=== PATIENT | female | born 1960 | race Caucasian/White ===

== ENCOUNTER → 2017-03-22 | Outpatient (CLI) | payer BC ==
[~2017-03-22] MED LIST: AMLO-110 PO; CHOL1000 PO; MULT-1027 PO; OMEP40CA41 PO
--- NOTE | 2017-03-22 13:03 | DIAGNOSTIC IMAGING REPORT ---
LUMBAR SPINE W/O CONTRAST HISTORY: Pain. Radiculopathy. LUMBAR RADICULOPATHY TECHNIQUE: Multiplanar multisequence MRI of the lumbar spine was performed without the use of contrast. COMPARISON: None. FINDINGS: For the purpose of the report the L5-S1 disc space will be located on axial image 27 of 30. Moderate degenerative disc changes throughout. L1-L2: No significant central canal or neural foraminal narrowing. L2-L3: Mild broad-based bulge. Minimal impact anterior thecal sac. L3-L4: Moderate broad-based bulging disc. Mild multifactorial narrowing of the spinal canal. Moderate hypertrophic change posterior facets L4-L5: Moderate multifactorial spinal stenosis. Broad-based bulging disc. Hypertrophic change posterior elements. L5-S1: Broad-based right central bulging disc. Mild multifactorial narrowing of the spinal canal. Considerable degenerative change posterior facets. IMPRESSION: 1. Moderate multifactorial multilevel narrowing of the spinal canal. This is considered most significant at L4-L5 and to a lesser extent L3-L4. 2. Mild broad-based right central disc herniation L5-S1 3. Moderate degenerative disc change throughout. The above report was generated using voice recognition software. It may contain grammatical, syntax or spelling errors. Electronically signed by: Andrez Garrett M.D. 03/22/2017 1:02 PM Dictated Date/Time: 03/22/2017 12:56 PM
== END | disposition home or self-care (01) ==
LOC: C.MRIBC 12:16
PROVIDERS: ATTEND Physician Assistant Medical
DX: M51.17 Intervertebral disc disorders with radiculopathy, lumbosacral region (principal)

== ENCOUNTER 2018-07-09 07:59 | Inpatient (IN) ==
--- NOTE | 2018-06-18 15:12 | PAT Medication Instructions ---
Medication Instructions Date of Service June 18, 2018 Home Medications CBD oil 1 dose TOPICAL BID amlodipine 5 mg tablet 5 mg PO HS cholecalciferol (vitamin D3) 1,000 5,000 units PO QAM multivitamin tablet 1 tab PO QAM omeprazole magnesium 20 mg 40 mg PO Q2D STOP taking 24 hours before surgery CBD oil 1 dose TOPICAL BID DO NOT take the morning of surgery cholecalciferol (vitamin D3) 1,000 5,000 units PO QAM multivitamin tablet 1 tab PO QAM Take morning of surgery With a small sip of water, OTHERWISE NOTHING TO EAT OR DRINK AFTER MIDNIGHT: omeprazole magnesium 20 mg 40 mg PO Q2D Take evening before surgery amlodipine 5 mg tablet 5 mg PO HS Other Notes If you have any questions please call us at [phone] or [phone] or [phone] or [phone]
--- NOTE | 2018-06-19 09:38 | XRay Report ---
XR chest Pre-admission PA/Lat CLINICAL HISTORY: pat COMPARISON STUDY: No previous studies for comparison. FINDINGS: The bones soft tissues and hemidiaphragms are normal. The cardiomediastinal silhouette is n ormal. The lungs are clear. The pulmonary vasculature is normal. IMPRESSION: Negative chest. The above report was generated using voice recognition software. It may contain grammatical, syntax or spelling errors. Electronically signed by: Andrez Garrett M.D. 06/19/2018 9:37 AM
--- NOTE | 2018-06-19 10:42 | Anesthesiology Consultation ---
Date of Service June 19, 2018 Assessment & Plan (1) Encounter for pre-operative examination: Chart Review Chart Review: Acceptable Risk for Surgery and Patient seen in Pre Admission Testing Teaching & Discussion Instructed NPO after midnight before surgery, except medications with 15 cc of water. Medication instructions provided according to the PAT guidelines. History Surgery Operation Date: 07/09/18 08:50 Proposed Procedures p Right Total Knee Replacement - Emmanuel Cain MD Height/Weight Height: 5 ft 3 in Weight: 96.4 kg Allergies Allergy/AdvReac Type Severity Reaction Status Date / Time No Known Allergies Allergy Verified 06/11/18 10:58 Medications Home Medications Medication Instructions Recorded Confirmed Last Taken CBD oil 1 dose TOPICAL BID 01/11/18 06/11/18 Unknown amlodipine 5 mg tablet 5 mg PO HS 01/11/18 06/11/18 Unknown cholecalciferol (vitamin D3) 1,000 5,000 units PO QAM 01/11/18 06/11/18 Unknown unit capsule multivitamin tablet 1 tab PO QAM 01/11/18 06/11/18 Unknown omeprazole magnesium 20 mg 40 mg PO Q2D 01/11/18 06/11/18 Unknown tablet,delayed release Past Medical History Medical History Obesity (Chronic) Hyperlipidemia (Chronic) Depression (Chronic) GERD (gastroesophageal reflux disease) (Chronic) Goiter (Chronic) Hypertension (Chronic) Irritable bowel syndrome (Chronic) Osteoarthritis of knees, bilateral (Chronic) Lumbar stenosis with neurogenic claudication (Chronic) LOWER THORACIC/LUMBAR REGION Lumbar back pain (Chronic) Past Surgical History Surgical History History of shoulder surgery (Resolved) LEFT SHOULDER History of D&C (Resolved) History of section (Resolved) X2 History of arthroscopy B/L KNEE MENISCUS PROCEDURE Past Anesthesia History No Hx of Anesthesia Complications and No Family Hx of Anesthesia Complications History of PONV No Motion Sickness Screening History of Motion Sickness: No Social History Smoking Status: Never smoker Do You Dip or Chew Tobacco: No Hx Alcohol Use: No Alcohol Intake Frequency Comment: 0 Hx Substance Use: No substance use type: does not use Exercise / Class Metabolic Activity II 4-5 Yardwork/Stairs/Walk up hill (Denies CP and SOB with stairs) Review of Systems Pt denies any recent chest pain, shortness of breath, palpitations, cough, fever or URI. Physical Exam Vital Signs BP: 127/77 P: 86bpm SPO2: 94% RA T: 98.6 R: 16 ENMT Mouth: + dental restorations (few crowns); no chipped teeth and no loose teeth Thyromental Distance: < 3.5 Finger Breadths (3) Mallampati Class: I Neck + thick neck; neck extension not limited Respiratory normal respiratory effort Auscultation: lungs clear to auscultation bilaterally Cardiovascular Rate/Rhythm: regular rate and regular rhythm Heart Sounds: no murmur Vessels: no carotid bruit Testing Electrocardiogram Date: 06/19/18 Findings: + NSR @ (82) Chest X-Ray Date: 06/19/18 Findings: + NAD Echocardiogram Date: 10/19/17 EF: 60% Mild concentric LVH with normal systolic LV function. Grade I diastolic dysfunction. Normal LA/RA/RV. Normal trileaflet AV and MV with normal function. No pericardial effusion or intracardiac mass. Laboratory Results 06/19/18 09:10 06/19/18 09:10 Blood Type AB Positive 06/19/18 09:10 Antibody Screen NEGATIVE 06/19/18 09:10 PT 9.7 Seconds (9.0-12.0) 06/19/18 09:10 INR 0.9 (0.9-1.1) 06/19/18 09:10 APTT 24.5 Seconds (21.0-31.0) 06/19/18 09:10
[2018-06-19 11:38] LABS: Basophils # (auto) 0.04 K/uL (0-0.2); Basophils % (auto) 0.9 %; Eosinophils # (auto) 0.19 K/uL (0-0.5); Eosinophils % (auto) 4.1 %; Hematocrit (blood only) 45.5 % (37-47); Hemoglobin 15.6 g/dL (12.0-16.0); Immature Granulocytes # (auto) 0.02 K/uL (0.00-0.02); Immature Granulocytes % (auto) 0.4 %; Lymphocytes % (auto) 28.3 %; Mean Corpuscular Hgb Conc 34.3 g/dL (32-36); Mean Corpuscular Volume 90.5 fL (80-100); Mean Platelet Volume 10.9 fL (7.4-10.4); Monocytes # (auto) 0.36 K/uL (0.11-0.59); Monocytes % (auto) 7.8 %; Neutrophils # (auto) 2.68 K/uL (1.4-6.5); Neutrophils % (auto) 58.5 %; Platelet Count 291 K/uL (130-400); RDW Coefficient of Variation 12.9 % (11.5-14.5); RDW Standard Deviation 42.5 fL (36.4-46.3); Red Blood Count 5.03 M/uL (4.2-5.4); White Blood Count 4.59 K/uL (4.8-10.8)
[2018-06-19 11:47] LABS: BUN Creatinine Ratio 24.6 (10-20); Est GFR (African American) 98.8; Est GFR (Non-African American) 85.3
[2018-06-19 12:07] LABS: INR 0.9 (0.9-1.1); Partial Thromboplastin Ratio 0.9; Partial Thromboplastin Time 24.5 Seconds (21.0-31.0); Prothrombin Time 9.7 Seconds (9.0-12.0)
--- NOTE | 2018-07-06 22:34 | History and Physical Report ---
DATE OF ADMISSION: 07/09/2018 CHIEF COMPLAINT: Bilateral knee pain and discomfort, left side greater than right. HISTORY OF PRESENT ILLNESS: A 58-year-old female who presents for surgical treatment of her knees. She has got a long history of bilateral knee pain and discomfort that has gotten worse over the past several years. She has seen Dr. Soares in the past and actually had a left knee scoped in 2013 and the right one done in 2015, in fact very temporary relief. Pain has been progressive in nature. She was more debilitated by her pain. She has had injection, which provided some temporary relief as well. The more she walks, the more it hurts. She denied to have her knees fixed. Of note, the patient does have some chronic back pain symptoms as well. PAST MEDICAL HISTORY: 1. Hypertension. 2. Diabetes, recent diagnosis. 3. Hiatal hernia. 4. Gastroesophageal reflux disease. 5. Obesity. 6. Low back pain/sciatica. PAST SURGICAL HISTORY: 1. Bilateral knee scopes, left one done 07/2013, right one done in 2015. 2. Left shoulder rotator cuff surgery. ALLERGIES: None. CURRENT MEDICINES: 1. Amlodipine 5 mg a day. 2. Prilosec 40 mg every other day. 3. Vitamin D. 4. Tramadol p.r.n. for pain. 5. Voltaren topical ointment twice a day. 6. CBD topical ointment. SOCIAL HISTORY: A 58-year-old female who lives in [place]. She is . Does not drink. No smoking history. FAMILY HISTORY: Significant for heart disease and diabetes. REVIEW OF HISTORY: Negative for diabetes, neurologic problems, vascular problems or bleeding disorders. She does have some chronic back pain. Denies any chest pain or shortness of breath. No history of DVT or PE. No known bleeding problems. PHYSICAL EXAMINATION: GENERAL: Reveals a pleasant middle-aged female, who looks to be in reasonably good health. HEENT: Benign. NECK: Supple. No lymphadenopathy. LUNGS: Clear to auscultation. HEART: Has a regular rate and rhythm. ABDOMEN: Soft, nontender, nondistended. EXTREMITIES: Grossly neurovascularly intact except as follows: Examination of both knees shows the patient ambulates with a waddling gait. She has got varus alignment to both knees. She is tender over the medial joint line bilaterally. Range of motion is 5 degrees short of full extension about 120 degrees of flexion bilaterally. She does have stiffness with flexion. No pain with hip motion. X-RAYS: X-rays of both knees were reviewed. Show advanced bilateral knee DJD. She has got complete loss of medial joint space. The left side is probably just a little bit worse than the right. ASSESSMENT: A 58-year-old female had a long history of bilateral knee pain, degenerative joint disease, with history of knee arthroscopy in the past. She has failed conservative treatment and would like to have her knees replaced. PLAN: We talked about treatment. We are going to proceed with left knee replacement. The risks and benefits of this procedure were explained to the patient include but not limited to DVT, PE, , infection, neurological injury, vascular injury, bleeding problem, pain, limited range of motion, stiffness, failure to relieve symptoms, incomplete relief of symptoms, need for further surgery in the future, fracture, leg length inequality, nerve palsy, etc. The patient understands and desires to proceed. Informed consent was obtained. We did talk about trying to limit her tramadol use preoperatively. She is planning to be discharged to home using [facility]. We will use insulin sliding scale coverage. MTDD
--- NOTE | 2018-07-08 22:47 | History and Physical Report ---
DATE OF ADMISSION: 07/09/2018 CHIEF COMPLAINT: Bilateral knee pain and discomfort, right side now worse than the left. HISTORY OF PRESENT ILLNESS: The patient is a 58-year-old female who presents for surgical treatment of her knees. She has got a long history of bilateral knee pain and discomfort that has gotten worse over the past several years. She has seen Dr. Soares in the past and had her left knee scoped in 2013, the right one done in 2016. Provided very temporary relief. Pain has just gotten gradually worse over time. She was initially having more pain in the left knee than the right, but more recently the right side is worse than the left. The more she walks, the more it hurts. She has got chronic pain. She does limp. She now like to proceed with right knee replacement as opposed to the left as the right one is bothering her more. PAST MEDICAL HISTORY: 1. Hypertension. 2. Diabetes, recent diagnosis. 3. Hiatal hernia. 4. Gastroesophageal reflux disease. 5. Obesity with a BMI of 38. 6. Low back pain/sciatica. PAST SURGICAL HISTORY: 1. Bilateral knee scopes, left one done in 2013, right one done in 2016. 2. Left shoulder rotator cuff surgery. ALLERGIES: None. CURRENT MEDICINES: 1. Amlodipine 5 mg. 3. Prilosec 40 mg every other day. 4. Vitamin D. 5. Tramadol p.r.n. for pain. 6. Voltaren topical ointment twice a day. 7. CBD topical ointment. SOCIAL HISTORY: A 58-year-old female. She is from [place]. She is . No significant alcohol or smoking history. FAMILY HISTORY: Significant for heart disease and diabetes. REVIEW OF SYSTEMS: Significant for recent diagnosis of diabetes. Denies any chest pain or shortness of breath. No history of DVT or PE. She does have some chronic back pain. No bleeding problems. PHYSICAL EXAMINATION: GENERAL: She is a healthy, pleasant, middle-aged female, but looks to be in pretty good health. HEENT: Benign. NECK: Supple. No lymphadenopathy. LUNGS: Clear to auscultation. HEART: Regular rate and rhythm. ABDOMEN: Soft, nontender, nondistended. EXTREMITIES: Grossly neurovascularly intact except as follows: Examination of both knees reveals patient walks with a bit of a waddling gait. She has got varus alignment to both knees. She is tender over the medial joint line bilaterally. Range of motion is pretty symmetric with about 5 degrees short of full extension and 120 degrees of flexion bilaterally. She has some stiffness with flexion. No pain with hip motion. X-RAYS: X-ray of both knees reveal advanced bilateral knee DJD. She has got complete loss of medial joint space in both sides. ASSESSMENT: A 58-year-old female with long history of bilateral knee pain and discomfort, unresponsive to conservative treatment. She had both knees scoped. She was initially thinking of doing the left knee but now would like her right knee done because it is bothering her more. PLAN: We will take her to the operating room and do right total knee replacement. The risks and benefits of this procedure were explained to the patient including but not limited to DVT, PE, , infection, neurological injury, vascular injury, bleeding problem, pain, limited range of motion, stiffness, failure to relieve symptoms, incomplete relief of symptoms, etc. The patient understands and desires to proceed. Informed consent was obtained. She is planning to be discharged home using [facility]. We will use insulin sliding scale coverage in the hospital.
[~2018-07-09 07:59] MED LIST changes: +ACETAMINOPHEN 500 MG TAB PO SCH; -AMLO-110 PO; +BUPIVACAINE 0.5 % 5 MG/1 ML PF 10ML VIAL ONE; +BUPIVACAINE LIPOSOME/PF 266 MG, BUPIVACAINE/EPINEPHRINE 50 ML, SODIUM CHLORIDE 0.9% 30 ... INFIL SCH; +CEFAZOLIN 2000MG 2,000 MG/15 ML SYR IV SCH; -CHOL1000 PO; +FAMOTIDINE 20 MG TAB PO SCH; +GABAPENTIN 300 MG x 2 PO SCH; +LR 500ML BOLUS, THEN 15ML/HR IV SCH; +LR 60ML/HR IV SCH; +METOCLOPRAMIDE HCL 10 MG TABLET PO SCH; -MULT-1027 PO; -OMEP40CA41 PO; +ROPIVACAINE 0.5% 5 MG/ML 30 ML VIAL ONE; +SCOPOLAMINE 1.5 MG TDSY TD SCH; +TRANEXAMIC ACID 1,000 MG **IV Intra-op IV SCH
--- NOTE | 2018-07-09 08:30 | History & Physical Bridge Note ---
Date of Service July 09, 2018 History & Physical Bridge Note I have examined the patient, reviewed the History & Physical and in the interval since the performance of the History & Physical I have noted the following changes of clinical significance: no changes noted. Will proceed with Right Knee Replacement
[2018-07-09] MEDS ORDERED: PROPOFOL IV EMULSION 10 MG/ML 20 ML VIAL IV ONE ×2 (09:33→11:59)
[2018-07-09] MEDS ORDERED: LIDOCAINE HCL 2% 2 ML VIAL/AMP(20MG/ML) INFIL ONE (09:33)
[2018-07-09] MEDS ORDERED: KETAMINE HCL INJ 50 MG/ML 10 ML VIAL ONE (09:34)
[2018-07-09] MEDS ORDERED: MIDAZOLAM HCL 1 MG/ML 2ML VIAL ONE ×2 (09:34→11:15)
[2018-07-09] MEDS ORDERED: fentaNYL citrate 100 MCG/2 ML VIAL ONE (09:34)
[2018-07-09] MEDS ORDERED: ePHEDrine sulfate 50 MG/ML AMP ONE (09:36)
[2018-07-09] MEDS ORDERED: SODIUM CHLORIDE 0.9% INJ 10 ML VIAL ONE (09:36)
[2018-07-09] MEDS ORDERED: SODIUM CHLORIDE 0.9% PF 50 ML VIAL ONE (10:26)
[2018-07-09] MEDS ORDERED: BACITRACIN INJ 50,000 UNIT VIAL ONE (10:26)
[2018-07-09] MEDS ORDERED: BUPIVACAINE LIPOSOME 1.3% 266 MG/20 ML VIAL ONE (10:26)
[2018-07-09] MEDS ORDERED: BUPIVACAINE 0.25% 30 ML VIAL ONE (10:27)
[2018-07-09] MEDS ORDERED: EPINEPHrine INJ 1 MG/ML AMP ONE (10:27)
[2018-07-09] MEDS ORDERED: ATROPINE SULFATE 0.1 MG/ML 10ML SYR IV PRN (10:57)
[2018-07-09] MEDS ORDERED: ePHEDrine sulfate 50 MG/ML AMP IV PRN (10:57)
--- NOTE | 2018-07-09 12:30 | Post Operative Brief Note ---
Immediate Post Op Note v1 Date of Surgery July 09, 2018 Pre & Post Diagnosis Operation Date: 07/09/18 10:40 Pre-Op Diagnosis: Right Knee Advanced Degenerative Joint Disease Post-Op Diagnosis: Right Knee Advanced Degenerative Joint Disease Procedure Operation Date: 07/09/18 10:40 Actual Procedures p Right Total Knee Arthroplasty(Right) - Emmanuel Cain MD Surgeon Emmanuel Cain MD Band Leader Adriano, PAC Estimated Blood Loss 50 Findings Consistent with Post-Op Diagnosis Fluids 100o cc Specimens Right Knee Drains Delacruz Catheter (16 Cambodian Delacruz catheter inserted by Ranjith Oh PA-C without difficulty. Clear yellow urine obtained, output to be monitored by Anesthesia) Anesthesia Type Spinal MAC Complications none Disposition Accompanied Patient To Recovery: No Disposition: Recovery Room
--- NOTE | 2018-07-09 12:59 | Operative Report ---
DATE OF OPERATION: 07/09/2018 SURGEON: Emmanuel Cain MD [employer] MAINFRAME DEVELOPER: CELENA Fitzpatrick PREOPERATIVE DIAGNOSIS: Right knee degenerative joint disease. POSTOPERATIVE DIAGNOSIS: Right knee degenerative joint disease. PROCEDURE PERFORMED: Right cemented posterior stabilized total knee arthroplasty COMPLICATIONS: None. ESTIMATED BLOOD LOSS: 50 mL. FLUID REPLACEMENT: 1000 mL crystalloid fluid replacement. TOURNIQUET TIME: 58 minutes at 300 mmHg. ANESTHESIA: Spinal with adductor canal block. DRAINS: None. SPECIMENS: Right knee sent for pathology. OPERATIVE INDICATIONS: The patient is a 58-year-old female who has had a long history of knee pain and discomfort. She underwent previous knee arthroscopy done elsewhere in the past. She developed progressive pain, unresponsive to conservative treatment. X-rays show advanced bilateral knee DJD. She was initially planned on the left knee, but the right knee became more painful and she would like to proceed with right total knee arthroplasty. OPERATIVE FINDINGS: Operative findings revealed advanced right knee DJD. She had extensive grade 4 changes in all 3 compartments. Moderate size joint effusion. She had about 10-15 degree flexion contracture. She had osteophytes in all 3 compartments. OPERATIVE IMPLANTS: Operative implants consisted of: 1. Biomet Vanguard size 62.5 right posterior stabilized femoral component. 2. Biomet size 67 tibial tray. 3. A 10 mm posterior stabilized polyethylene insert. 4. A 31 x 8 all poly patella. OPERATIVE PROCEDURE: The patient was taken to the operating room, identified and placed on the operating table in supine position. All contact areas were appropriately padded. IV antibiotics were provided by the anesthesia team. A spinal anesthetic and adductor canal block had been provided in the holding area. Delacruz catheter was placed in sterile fashion. Right thigh tourniquet was then placed and the right lower extremity was then prepped and draped in usual sterile fashion. The right leg was elevated and exsanguinated with Esmarch and tourniquet was placed at 300 mmHg. An anterior approach of the right knee was then performed through a longitudinal incision centered over the patella. Sharp dissection was carried through subcutaneous tissue down to the level of the extensor mechanism. A medial parapatellar arthrotomy incision was made. Some subperiosteal dissection was carried out medially. The fat pad resected from beneath the patellar tendon. The lateral patellofemoral ligament was released. The patella was everted and the knee was flexed. The osteophytes were taken off the distal femur. The ACL and PCL were then released from the distal femur and the tibia subluxated anteriorly. The external tibial alignment jig was then placed in the anterior face of the tibia and adjusted 16 mm medially. Proximal tibial cut was made to remove about a millimeter of bone from the most deficient aspect of the medial tibial plateau. Some osteophytes were taken off medial and posteromedially. The tibia sized to a size 67. Attention was then drawn to the femur. The distal femur was entered with a sharp drill bit. Intramedullary canal was suctioned. A right 5-degree valgus cutting guide was placed. Distal femoral cutting block was pinned in place. Distal femoral cut was made to take an additional 3 mm of bone off the distal femur. Femur was then sized to a size 62.5. We did downsize this slightly. The AP cutting block was pinned parallel to the epicondylar axis, which was 3 degrees of external rotation. The anterior cut, anterior chamfer, posterior cut, posterior chamfer cuts were made. Box cutting guide was then placed and adjusted slightly lateral and the box cut was made. The knee was flexed. The remnants of the medial and lateral menisci were excised. The osteophytes were taken off the posterior aspect of the femur. A trial femoral component was placed. The tibial tray was then pinned in maximum external rotation and drill and stem punch were used to create defect in the proximal tibia for the tibial tray. The knee was then trialed and the 10 mm insert fit most appropriately. Attention was then drawn to the patella. The patella was cleaned of all soft tissue. Patella thickness measured 21 mm in thickness, it was cut down to 13. It was sized to a size 31 patella. Lug holes were drilled for a 31 patella. Lateral osteophyte was removed. Patella button was placed. Knee was taken through range of motion and patella tracked nicely with no thumbs test. Attention was then drawn toward placing the permanent components. All trial components were removed. Bone plug was placed in the distal femur to limit blood loss. A double batch of Palacos G cement was mixed. A Biomet Vanguard size 62.5 right posterior stabilized femoral component, size 67 tibial tray, a 10 mm posterior stabilized polyethylene insert, and a 31 x 8 all poly patella then cemented in place. Knee was brought out into full extension until cement hardened. A final cement check was then performed. Pericapsular tissues were injected with a total of 100 mL of a combination of 20 mL of Exparel, 30 mL of normal saline, 50 mL of 0.25% Marcaine with epinephrine. The patient did receive 1 gram of tranexamic acid. The tourniquet was then let down for a tourniquet time of 58 minutes. Hemostasis was assured using electrocautery. The wound was once again irrigated. The extensor mechanism was then closed with a combination of #1 PDS suture and #1 Vicryl suture in a [id number] fashion. Extensor mechanism was checked and found to be intact. The subcutaneous tissue was then closed with #2 Dexon suture in a buried interrupted fashion. Skin was closed with skin alfonso. Leg was then cleaned, dried and a sterile dressing of Xeroform, 4 x 4, sterile cast padding and Andreas bandage were applied. The patient then transferred to the recovery room in stable condition. The patient tolerated the procedure well with no complications. All needle and sponge counts were correct at the end of the operation. I attest to the content of the Intraoperative Record and any orders documented therein. Any exception s are noted below.
--- NOTE | 2018-07-09 13:45 | XRay Report ---
XR knee RT 2V routine CLINICAL HISTORY: Postoperative evaluation. COMPARISON: Right knee radiographs October 18, 2017. FINDINGS: Alignment of the total right knee arthroplasty is anatomic. No fracture or unexpected radi opaque foreign body. There are skin alfonso. IMPRESSION: Expected findings following total right knee arthroplasty. Electronically signed by: Kevan Johnson M.D. 07/09/2018 1:43 PM
[2018-07-09] MEDS ORDERED: CARBOHYDRATES FOR HYPOGLYCEMIA PO PRN (13:55)
[2018-07-09] MEDS ORDERED: ONDANSETRON INJ 2 MG/ML 2 ML VIAL IV PRN (13:55)
[2018-07-09] MEDS ORDERED: GLUCOSE 10 TABS/TUBE PO PRN (13:55)
[2018-07-09] MEDS ORDERED: BISACODYL 10 MG SUPP PR PRN (13:55)
[2018-07-09] MEDS ORDERED: ALUMINUM/MAGNESIUM SUSP 30 ML UDC PO PRN (13:55)
[2018-07-09] MEDS ORDERED: HYDROmorphone INJ 0.5 MG/0.5 ML SYR IV PRN (13:55)
[2018-07-09] MEDS ORDERED: DEXTROSE 50% 50 ML SYRINGE IV PRN (13:55)
[2018-07-09] MEDS ORDERED: MAGNESIUM HYDROXIDE SUSP 30 ML UDC PO PRN (13:55)
[2018-07-09] MEDS ORDERED: GLUCOSE 40% GEL 15 GM TUBE PO PRN (13:55)
[2018-07-09] MEDS ORDERED: PHARMACY GLYCEMIC MGMT CONSULT STA (13:55)
[2018-07-09] MEDS ORDERED: GLUCAGON FOR INJ 1 MG VIAL SQ PRN (13:55)
[2018-07-09] MEDS ORDERED: NALOXONE HCL 0.4 MG/1 ML VIAL/CARP IV PRN (13:55)
[2018-07-09] MEDS ORDERED: METOCLOPRAMIDE HCL INJ 5 MG/ML 2 ML VIAL IV PRN (13:55)
--- NOTE | 2018-07-09 13:56 | Anesthesiology Progress Note ---
Date of Service July 09, 2018 Anesthesia Post Procedure Vital Signs Vital Signs: Temp Pulse Pulse Resp BP BP Pulse Ox 07/09/18 13:41 75 15 142/68 H 95 07/09/18 13:40 80 13 93 07/09/18 13:36 79 16 142/74 H 93 07/09/18 13:35 77 14 93 07/09/18 13:31 69 12 138/64 95 07/09/18 13:30 79 20 92 07/09/18 13:26 77 16 143/73 H 94 07/09/18 13:25 72 12 96 07/09/18 13:22 80 14 89 L 07/09/18 13:21 81 18 129/75 90 07/09/18 13:20 77 16 94 07/09/18 13:16 79 15 141/80 H 91 07/09/18 13:15 76 13 93 07/09/18 13:12 78 13 90 07/09/18 13:11 78 13 136/80 92 07/09/18 13:10 75 12 93 07/09/18 13:06 74 17 138/71 94 07/09/18 13:05 72 13 97 07/09/18 13:01 75 16 123/59 L 97 07/09/18 13:00 72 19 96 07/09/18 12:56 72 12 123/63 94 07/09/18 12:55 79 22 92 07/09/18 12:51 79 22 125/63 96 07/09/18 12:50 76 13 94 07/09/18 12:46 74 16 120/56 L 96 07/09/18 12:45 74 18 96 07/09/18 12:41 90 18 121/73 91 07/09/18 12:40 75 15 93 07/09/18 12:37 36.2 C L 82 85 17 122/64 122/64 93 07/09/18 12:36 83 16 87 L 07/09/18 08:39 36.7 C 81 22 146/82 H 93 Notes Mental Status: alert / awake / arousable and participated in evaluation Patient Amnestic to Procedure: Yes Nausea / Vomiting: adequately controlled Pain: adequately controlled Airway Patency, RR, SpO2: stable & adequate BP & HR: stable & adequate Hydration State: stable & adequate Neuraxial Anesthesia: was administered and sensory block is resolving Anesthetic Complications: no major complications apparent
[2018-07-09] MEDS ORDERED: PHARMACY GLYCEMIC MGMT CONSULT PRN (14:00)
[2018-07-09] MEDS: SODIUM CHLORIDE 0.9% 1000ML 1,000 ML IV SCH ×2 (14:27→19:51)
--- NOTE | 2018-07-09 14:31 | Pharmacy Report ---
Glycemic Control Consultation - Date of Service July 09, 2018 - Scope Scope: Glycemic Pharmacist consulted by Dr Cain on 07/09/18 for glycemic control and to write orders per [facility] inpatient glycemic control protocol - Objective Weight: 97.154 kg - Recent Pertinent Medications Outpatient Anti-diabetic Regimen: * Recent diagnosis * A1c = ordered with AM labs - Assessment & Plan Assessment & Plan: ASSESSMENT: * Ms. Barriga is a 58yo F s/p R TKA. PMHx consistent with HTN, GERD, obesity, recent diagnosis of DM-II per surgical H&P. Other than her recent surgery she has no other overt risk factors for insulin resistance. I have ordered an A1C with labs tomorrow to have a better understanding of her diabetic status. PLAN FOR INPATIENT GLYCEMIC CONTROL: * Basal insulin * none ordered until we have an a1c * Bolus insulin * NovoLog per scale ACHS or Q6hrs while NPO * Goal Range: Low 110 mg/dL - High 140 mg/dL * Correction Factor: 25 mg/dL/unit * Nutritional / Prandial insulin per carb ratio of 1 unit per 8 grams CHO consumed * Please note that the plan above was derived based on current level of insulin resistance and hospital stress. These recommendations are appropriate for inpatient admission only. Plan of care upon discharge will need to be reassessed to avoid potential outpatient hypo/hyperglycemia. Thank you.
[2018-07-09] MEDS: CHECK SCOPOLAMINE PATCH PLACEMENT SCH ×2 (16:46→23:23)
[2018-07-09] MEDS: KETOROLAC 30 MG/ML VIAL IV SCH ×2 (16:46→21:12)
[2018-07-09] MEDS: INSULIN ASPART 100 UNITS/ML 3 ML PEN SC SCH ×2 (17:00→22:41)
[2018-07-09] MEDS ORDERED: TRANEXAMIC ACID 1,000 MG in 0.9 % SODIUM CHLORIDE 100 ML IV SCH (18:31)
[2018-07-09] MEDS: OXYCODONE HCL IR 5 MG TAB (IMMEDIATE RELEASE) PO PRN (19:10)
[2018-07-09] MEDS: ASCORBIC ACID 500 MG TAB PO SCH (19:12)
[2018-07-09] MEDS: FERROUS GLUCONATE 324 MG TAB PO SCH (19:12)
[2018-07-09] MEDS: CEFAZOLIN 2000MG 2,000 MG/15 ML SYR IV SCH (19:13)
[2018-07-09] MEDS: TAPENTADOL HCL ER 50 MG TABCR PO SCH (21:11)
[2018-07-09] MEDS: ASPIRIN 81 MG ECTAB PO SCH (21:12)
[2018-07-09] MEDS: AMLODIPINE BESYLATE 5 MG TAB PO SCH (21:12)
[2018-07-09] MEDS: ACETAMINOPHEN 500 MG TAB PO SCH (21:12)
[2018-07-09] MEDS: DOCUSATE SODIUM 100 MG CAP PO SCH (21:12)
[2018-07-09] MEDS: SENNA 8.6 MG TAB PO SCH (21:12)
[2018-07-10] MEDS: CEFAZOLIN 2000MG 2,000 MG/15 ML SYR IV SCH (01:23)
[2018-07-10] MEDS: KETOROLAC 30 MG/ML VIAL IV SCH ×4 (03:20→22:17)
[2018-07-10] MEDS: ACETAMINOPHEN 500 MG TAB PO SCH ×3 (05:17→22:17)
[2018-07-10 06:07] LABS: Hematocrit (blood only) 36.6 % (37-47); Hemoglobin 13.1 g/dL (12.0-16.0); Mean Corpuscular Hgb Conc 35.8 g/dL (32-36); Mean Corpuscular Volume 88.8 fL (80-100); Mean Platelet Volume 9.7 fL (7.4-10.4); Platelet Count 227 K/uL (130-400); RDW Coefficient of Variation 12.8 % (11.5-14.5); RDW Standard Deviation 41.6 fL (36.4-46.3); Red Blood Count 4.12 M/uL (4.2-5.4); White Blood Count 9.31 K/uL (4.8-10.8)
[2018-07-10 06:42] LABS: BUN Creatinine Ratio 11.9 (10-20); Est GFR (African American) 88.8; Est GFR (Non-African American) 76.6; Potassium 3.7 mmol/L (3.5-5.1)
[2018-07-10] MEDS: OXYCODONE HCL IR 5 MG TAB (IMMEDIATE RELEASE) PO PRN ×3 (08:03→23:49)
[2018-07-10] MEDS: FERROUS GLUCONATE 324 MG TAB PO SCH ×2 (08:05→16:43)
[2018-07-10] MEDS: ASCORBIC ACID 500 MG TAB PO SCH ×2 (08:05→16:43)
--- NOTE | 2018-07-10 08:31 | Anesthesiology Progress Note ---
Date of Service July 10, 2018 Anesthesia Post Procedure Vital Signs Vital Signs: Temp Pulse Pulse Pulse Resp BP BP 07/10/18 07:18 37.1 C 78 18 144/80 H 07/10/18 03:16 37.2 C 93 H 16 134/74 07/09/18 23:19 37.3 C 98 H 16 114/62 07/09/18 19:55 37.5 C 75 18 139/73 07/09/18 17:08 37.1 C 69 16 133/78 07/09/18 15:50 37.1 C 85 16 137/78 07/09/18 14:48 90 18 146/81 H 07/09/18 14:16 84 18 143/78 H 07/09/18 14:06 37.1 C 83 18 144/78 H 07/09/18 13:41 75 15 142/68 H 07/09/18 13:40 80 13 07/09/18 13:36 79 16 142/74 H 07/09/18 13:35 77 14 07/09/18 13:31 69 12 138/64 07/09/18 13:30 79 20 07/09/18 13:26 77 16 143/73 H 07/09/18 13:25 72 12 07/09/18 13:22 80 14 07/09/18 13:21 81 18 129/75 07/09/18 13:20 77 16 07/09/18 13:16 79 15 141/80 H 07/09/18 13:15 76 13 07/09/18 13:12 78 13 07/09/18 13:11 78 13 136/80 07/09/18 13:10 75 12 07/09/18 13:06 74 17 138/71 07/09/18 13:05 72 13 07/09/18 13:01 75 16 123/59 L 07/09/18 13:00 72 19 07/09/18 12:56 72 12 123/63 07/09/18 12:55 79 22 07/09/18 12:51 79 22 125/63 07/09/18 12:50 76 13 07/09/18 12:46 74 16 120/56 L 07/09/18 12:45 74 18 07/09/18 12:41 90 18 121/73 07/09/18 12:40 75 15 07/09/18 12:37 36.2 C L 82 85 17 122/64 122/64 07/09/18 12:36 83 16 07/09/18 08:39 36.7 C 81 22 146/82 H Pulse Ox 07/10/18 07:18 91 07/10/18 03:16 92 07/09/18 23:19 93 07/09/18 19:55 96 07/09/18 17:08 97 07/09/18 15:50 96 07/09/18 14:48 96 07/09/18 14:16 95 07/09/18 14:06 97 07/09/18 13:41 95 07/09/18 13:40 93 07/09/18 13:36 93 07/09/18 13:35 93 07/09/18 13:31 95 07/09/18 13:30 92 07/09/18 13:26 94 07/09/18 13:25 96 07/09/18 13:22 89 L 07/09/18 13:21 90 07/09/18 13:20 94 07/09/18 13:16 91 07/09/18 13:15 93 07/09/18 13:12 90 07/09/18 13:11 92 07/09/18 13:10 93 07/09/18 13:06 94 07/09/18 13:05 97 07/09/18 13:01 97 07/09/18 13:00 96 07/09/18 12:56 94 07/09/18 12:55 92 07/09/18 12:51 96 07/09/18 12:50 94 07/09/18 12:46 96 07/09/18 12:45 96 07/09/18 12:41 91 07/09/18 12:40 93 07/09/18 12:37 93 07/09/18 12:36 87 L 07/09/18 08:39 93 Pain Intensity Right Knee: Pain Intensity: 7 Notes Mental Status: alert / awake / arousable Patient Amnestic to Procedure: Yes Nausea / Vomiting: adequately controlled Pain: adequately controlled Airway Patency, RR, SpO2: stable & adequate BP & HR: stable & adequate Hydration State: stable & adequate Neuraxial Anesthesia: was administered and sensory block resolved Anesthetic Complications: no major complications apparent
[2018-07-10] MEDS ORDERED: PANTOprazole 40 MG TAB PO SCH (09:00)
[2018-07-10] MEDS ORDERED: NON-FORMULARY MEDICATION (Magnesium 500 MG) PO SCH (09:00)
[2018-07-10] MEDS ORDERED: MULTIVITAMIN TAB PO SCH (09:00)
[2018-07-10] MEDS: DOCUSATE SODIUM 100 MG CAP PO SCH ×2 (09:06→20:36)
[2018-07-10] MEDS: OMEGA-3 (PURIFIED FISH OIL) 1 GM CAP PO SCH (09:06)
[2018-07-10] MEDS: MULTIVITAMIN TAB PO SCH (09:06)
[2018-07-10] MEDS: ASPIRIN 81 MG ECTAB PO SCH ×2 (09:06→20:36)
[2018-07-10] MEDS: CHOLECALCIFEROL 1,000 UNITS TAB PO SCH (09:07)
[2018-07-10] MEDS: TAPENTADOL HCL ER 50 MG TABCR PO SCH ×2 (09:43→20:36)
[2018-07-10] MEDS: INSULIN ASPART 100 UNITS/ML 3 ML PEN SC SCH ×4 (09:43→22:50)
--- NOTE | 2018-07-10 12:06 | Pharmacy Report ---
Pharmacy Glycemic Short Note 2 - Date of Service July 10, 2018 - Glycemic Short BSG Results (Last 24 hours): 07/09/18 07/09/18 07/10/18 16:33 20:40 05:53 Glucose 119 H POC Glucose 100 H 110 H 07/10/18 08:01 Glucose POC Glucose 131 H OUTPATIENT ANTIDIABETIC REGIMEN: * n/a, just recently diagnosed * A1c = 5.7% on 06/07/18 (pre-diabetes) ASSESSMENT: 07/10 * Ms. Barriga has not received any insulin thus far. Carb ratio was removed last evening, I'm assuming when the BSG was 100 mg/dL at dinner. BSGs have only been as high as 142 mg/dL, without insulin. * Will plan to continue Novolog with correctional insulin only. Prandial coverage can be reinstituted if BSGs are consistently above 150 mg/dL. 07/09 * Ms. Barriga is a 58yo F s/p R TKA. PMHx consistent with HTN, GERD, obesity, recent diagnosis of DM-II per surgical H&P. Other than her recent surgery she has no other overt risk factors for insulin resistance. I have ordered an A1C with labs tomorrow to have a better understanding of her diabetic status. PLAN FOR INPATIENT GLYCEMIC CONTROL: * Bolus insulin - no change * NovoLog per scale ACHS or Q6hrs while NPO * Goal Range: Low 110 mg/dL - High 140 mg/dL * Correction Factor: 25 mg/dL/unit PLAN FOR DISCHARGE: * Lifestyle modifications (diet, weight loss, exercise) to improve A1c and prevent/slow transition to diabetes
--- NOTE | 2018-07-10 15:19 | Progress Note ---
DATE: 07/10/2018 SUBJECTIVE: A 58-year-old female postop day 1 from right knee replacement. Her knee is sore, but it is bit manageable. No chest pain or shortness of breath. Not feeling dizzy or lightheaded. OBJECTIVE: VITAL SIGNS: Temperature 37.1. Vital signs stable. GENERAL: Physical examination shows a pleasant, middle-aged female. She is sitting up in bed, looks reasonably comfortable. EXTREMITIES: Examination of the right leg reveals the dressing to be clean, dry and intact. She can do a straight leg raise. She can dorsiflex and plantarflex her foot appropriately. She is neurologically intact. LABORATORY DATA: Hemoglobin 13.1. Hematocrit 36.6. Electrolytes are stable. ASSESSMENT: A 58-year-old female postop day 1 from right knee replacement, doing pretty well. Pain is reasonably well controlled. She is neurologically intact. PLAN: 1. DVT prophylaxis including thigh-high TEDs, SCDs, and aspirin twice a day. 2. PT/OT. Weight bear as tolerated. Right total knee protocol. 3. Pain control, doing okay with current pain regimen. 4. Disposition: Plan to discharge to home with some home health once adequately recovered.
[2018-07-10] MEDS: AMLODIPINE BESYLATE 5 MG TAB PO SCH (20:36)
[2018-07-10] MEDS: SENNA 8.6 MG TAB PO SCH (20:36)
[2018-07-11] MEDS: KETOROLAC 30 MG/ML VIAL IV SCH ×2 (04:27→09:31)
[2018-07-11] MEDS: ACETAMINOPHEN 500 MG TAB PO SCH ×2 (05:26→13:56)
--- NOTE | 2018-07-11 07:40 | Progress Note ---
DATE: 07/11/2018 SUBJECTIVE: A 58-year-old white female postop day 2 from a right knee replacement. She is doing well. Pain is controlled. No chest pain or shortness of breath. Not feeling dizzy or lightheaded. OBJECTIVE: VITAL SIGNS: Temperature 36.9. Vital signs stable. GENERAL: Physical examination shows a pleasant, middle-aged female. She is sitting up in her bedside and looks pretty comfortable. EXTREMITIES: Examination of the right leg reveals the dressing to be clean, dry and intact. Calf is soft and supple. She can dorsiflex and plantarflex her foot appropriately. She is neurologically intact. ASSESSMENT: A 58-year-old white female postop day 2 from right knee replacement, doing pretty well. Pain is controlled. PLAN: 1. DVT prophylaxis including thigh-high TEDs, SCDs, and aspirin twice a day. 2. PT/OT. Weight bear as tolerated. Right total knee protocol. 3. Pain control, doing well with current pain regimen. 4. Disposition: Plan to discharge to home with some home health later today.
[2018-07-11] MEDS: INSULIN ASPART 100 UNITS/ML 3 ML PEN SC SCH (07:53)
[2018-07-11] MEDS: DOCUSATE SODIUM 100 MG CAP PO SCH (08:01)
[2018-07-11] MEDS: CHOLECALCIFEROL 1,000 UNITS TAB PO SCH (08:01)
[2018-07-11] MEDS: FERROUS GLUCONATE 324 MG TAB PO SCH (08:02)
[2018-07-11] MEDS: MULTIVITAMIN TAB PO SCH (08:02)
[2018-07-11] MEDS: OMEGA-3 (PURIFIED FISH OIL) 1 GM CAP PO SCH (08:02)
[2018-07-11] MEDS: ASPIRIN 81 MG ECTAB PO SCH (08:03)
[2018-07-11] MEDS: ASCORBIC ACID 500 MG TAB PO SCH (08:03)
[2018-07-11] MEDS: TAPENTADOL HCL ER 50 MG TABCR PO SCH (08:04)
[2018-07-11] MEDS: OXYCODONE HCL IR 5 MG TAB (IMMEDIATE RELEASE) PO PRN (12:42)
--- NOTE | 2018-07-12 11:30 | Discharge Summary ---
Date of Service July 17, 2018 Discharge Data Consultations 07/09/18 13:55 Consult Case Management - Discharge Planning Routine Procedures Performed Operation Date: 07/09/18 10:40 Actual Procedures p Right Total Knee Arthroplasty(Right) - Emmanuel Cain MD
--- NOTE | 2018-07-17 02:02 | Discharge Summary ---
ADMITTING PHYSICIAN AND SURGEON: Dr. Cain. ADMITTING DIAGNOSIS: Right knee degenerative joint disease. SURGERY PERFORMED: Right total knee arthroplasty. SECONDARY DIAGNOSES: Hypertension, diabetes, hiatal hernia, gastroesophageal reflux disease, obesity, low back pain, sciatica. CONSULTS: None obtained. HISTORY AND PHYSICAL EXAMINATION: Well documented in patient's chart. HOSPITAL COURSE: The patient was admitted on 07/09/2018 underwent total knee arthroplasty, tolerated the procedure well. There were no complications. She was transferred to the PACU postoperatively and later to the orthopedic floor for further care. She was given Ancef for antibiotic prophylaxis, LATANYA stockings, SCDs and aspirin for DVT prophylaxis. Hemoglobin, hematocrit and vital signs were monitored during hospital stay and remained stable, did not require blood transfusion. There were no complications. By postoperative day 2, she was tolerating a diabetic diet. Pain was controlled with oral pain medicine. She was participating in physical therapy. On postop day 2, she was discharged home, set up with home health services. She was given printed discharge instructions including new prescriptions for extra strength Tylenol, aspirin and oxycodone. Continue her home medications. Continue physical therapy, weightbearing as tolerated, LATANYA stockings. Follow up approximately 2 weeks postoperatively or sooner if any problems or concerns.
== END 2018-07-11 14:25 | disposition home health service (06) | DRG 470 ==
LOC: ASU 07:59 → 3E 12:35